=== PATIENT | male | born 1965 | race Caucasian/White ===

== ENCOUNTER 2016-08-26 11:09 | Emergency (ER) | payer OTHER ==
[~2016-08-26] VITALS: Ht 172.7 cm; Wt 107.0 kg
[~2016-08-26 11:09] MED LIST: HYDR-3533 PO; LISI-360 PO; LOVA10TA PO; PROM25SU8 PO; SERT-129 PO
[2016-08-26 11:27] VITALS: BP 104/65; PULSE 65; RESP 16; TEMP 98.6; O2SAT 96
[2016-08-26] MEDS ORDERED: LISI10TA3 PO (11:40)
[2016-08-26] MEDS ORDERED: LOVA10TA PO (11:40)
[2016-08-26] MEDS ORDERED: LIDOCAINE 1%/EPINEPHrine 1:100,000 SOLN 20 ML VIAL INFIL ONE (11:45)
--- NOTE | 2016-08-26 11:45 | PD ---
HPI Chief Complaint: Laceration/Skin Injury Time Seen by Provider: 11:44 Travel History International Travel<30 days: No Contact w/Intl Traveler<30days: No Traveled to known affect area: No History of Present Illness HPI Patient comes in complaining of laceration to the dorsal aspect of his left hand that occurred shortly prior to arrival. Patient states he was throwing a broken toilet into a dumpster when the laceration occurred. Patient denies doing anything for this prior to coming to the emergency department other than wrapping it. Patient reports his tetanus shot is up to date. Patient reports throbbing like pain around the laceration without radiation. PFSH Past Medical History Anxiety: Yes Cancer: No Cardiovascular Problems: No High Cholesterol: Yes Diabetes: No Diminished Hearing: No Endocrine: No Genitourinary: No Hepatitis: No Hiatal Hernia: No Hypertension: Yes Immune Disorder: No Musculoskeletal: No Neurologic: No Psychiatric: Yes (anxiety and depression) Reproductive: No Respiratory: No Immunizations Current: Yes Thyroid Disease: No Tetanus Vaccination: < 5 Years Influenza Vaccination: No Past Surgical History AICD: No Joint Replacement: No Pacemaker: No Other Surgery: Yes (melanoma removal-left shoulder,left upper arm, back) Social History Alcohol Use: Yes (SOCIAL- wine) Tobacco Use: No Substance Use: No Allergies-Medications (Allergen,Severity, Reaction): Coded Allergies: No Known Allergies (Verified , 08/26/16) Reported Meds & Prescriptions Reported Meds & Active Scripts Active Ibuprofen 800 Mg Tab 800 Mg PO Q8H PRN Keflex (Cephalexin) 500 Mg Cap 500 Mg PO Q8H 7 Days Reported Lisinopril 10 Mg Tab 10 Mg PO DAILY Lovastatin 10 Mg Tab 10 Mg PO DAILY Review of Systems Except as stated in HPI: all other systems reviewed are Neg Physical Exam Narrative GENERAL: Well-developed, overly nourished, in no acute distress, and non-ill appearing. SKIN: Warm and dry. Laceration dorsal aspect left hand thumb side. Neurovascularly intact distally. Full range of motion distal to laceration. HEAD: Atraumatic. Normocephalic. EYES: Pupils equal and round. EOMI. No scleral icterus. No injection or drainage. ENT: No nasal bleeding or discharge. Mucous membranes pink and moist. NECK: Trachea midline. Supple. No nuclear rigidity. CARDIOVASCULAR: Capillary refill less than 2 seconds. RESPIRATORY: No accessory muscle use. No respiratory distress. MUSCULOSKELETAL: No obvious deformities. No clubbing. No cyanosis. No edema. Full range of motion. NEUROLOGICAL: Awake and alert. No obvious cranial nerve deficits. Motor grossly within normal limits. Normal speech. PSYCHIATRIC: Appropriate mood and affect; insight and judgment normal. Data Data Last Documented VS Vital Signs Date Time Temp Pulse Resp B/P Pulse Ox O2 Delivery O2 Flow Rate FiO2 08/26/16 11:34 16 08/26/16 11:27 98.6 65 104/65 96 Orders Lidocai-Epi 1%-1:100,000 Inj (Xylocaine- (08/26/16 11:45) Hand, Complete (Thu0ekr) (08/26/16 ) Ibuprofen (Motrin) (08/26/16 13:00) MDM Medical Decision Making Medical Screen Exam Complete: Yes Emergency Medical Condition: Yes Differential Diagnosis Laceration, abrasion, retained foreign body, other Narrative Course The patient suffered laceration to the extremity. There was no evidence to suggest foreign bodies. Visual, tactile and radiographic exams were unremarkable without evidence of foreign body at this time. There was no evidence of neurovascular injury. The patient had a normal distal vascular exam , and had full normal motor and sensory exams. There was also no evidence or tendon injury, with normal distal full range of motions, flexion, extension, abduction, adduction and opponens. There was no evidence of local joint space involvement at this time. The patient was irrigated with copious sterile normal saline and primary repair was performed. Please see procedure note. The patient was given signs and symptom warnings for infection, such as increasing pain, redness, swelling, associated heat, pus or fever. The patient was warned of possible unseen foreign body and instructed to return immediately if signs or symptoms develop. The patient was given instructions for timely follow up and for removal. The patient agreed with plan of care. Patient in no obvious distress upon re-evaluation. All pertinent Radiology result(s) discussed with patient. Patient was asked if they wanted to speak to my attending, which the patient did not wish to do at this time. Any questions/ concerns in reference to patient diagnosis/condition discussed and clarified prior to patient's discharge. Reinforced sheer importance of close follow up with patient's Workmen's Comp. provider and/or hand surgeon. Instructed patient to return to ED immediately, if symptoms return/worsen. Pt showed understanding of above instructions. Further instructions and recommendations were detailed in discharge paperwork. Pt ambulated without difficulty out of ED at discharge. Procedures Procedure Narrative LACERATION REPAIR LOCATION: Left hand dorsal aspect thumb side LENGTH: Approximately 6 cm irregular shaped NUMBER OF STITCHES/ALEKS: 9 total combination of simple interrupted and simple mattress REPAIR: Verbal consent was obtained. The area of the laceration was cleaned and prepped. The laceration was infiltrated with lidocaine with epi. The wound was copiously irrigated and explored without evidence of foreign body, bony involvement, ligament injury, tendon injury, or neurovascular injury. The wound was closed using 4-0 Vicryl. This was a single layer repair. A sterile dressing was applied by nurse. The patient was advised to keep the affected area as clean and dry as possible using soap and water. There were no complications. Patient tolerated the procedure well. Diagnosis Primary Impression: Laceration of left hand Qualified Code: S61.412A - Laceration of left hand, initial encounter Referrals: Zelalem Purdy MD Patient Instructions: Care For Your Absorbable Stitches (ED), General Instructions, Laceration (ED) Additional Instructions: Follow-up with your workmen's comp provider or hand surgeon next week for reevaluation. Take all medication as prescribed. Keep wound dry and clean as possible using soap and water. Return to the emergency department if symptoms get worse. Med/Other Pt SpecificInfo: Prescription(s) given Scripts Ibuprofen 800 Mg Dew417 Mg PO Q8H PRN (PAIN SCALE 1 TO 10) #21 TAB Ref 0 Prov:Becky Kingsley MD 08/26/16 Cephalexin (Keflex)500 Mg Kwn278 Mg PO Q8H 7 Days Ref 0 Prov:Becky Kingsley MD 08/26/16 Disposition: 01 DISCHARGE HOME Condition: Stable Ozzy Ortez Aug 26, 2016 11:45
--- NOTE | 2016-08-26 12:45 | RADHPO ---
EXAM DATE/TIME: 08/26/2016 12:16 [facility] COMPARISON: No previous studies available for comparison. INDICATIONS : Left hand laceration. MEDICAL HISTORY : None. SURGICAL HISTORY : None. ENCOUNTER: Initial ACUITY: 1 day PAIN SCORE: 3/10 LOCATION: Left lateral 1st digit FINDINGS: Three view examination of the left hand demonstrates no soft tissue swelling, dislocation, or fractur e. The carpal bones appear intact. The interphalangeal and metacarpophalangeal joints are intact. Bony mineralization is normal. CONCLUSION: There is no fracture or radiopaque foreign body. Alton German MD FACR on August 26, 2016 at 12:43 Board Certified Radiologist. This report was verified electronically.
[2016-08-26] MEDS ORDERED: CEPH-460 PO (12:55)
[2016-08-26] MEDS ORDERED: IBUP800T23 PO (12:55)
[2016-08-26] MEDS ORDERED: IBUPROFEN 800 MG TAB PO ONE (13:00)
== END 2016-08-26 13:19 | disposition home or self-care (01) ==
LOC: PHEFT 11:09
DX: S61.412A Laceration without foreign body of left hand, initial encounter (principal); W45.8XXA Other foreign body or object entering through skin, initial encounter; Y93.89 Activity, other specified; Y92.9 Unspecified place or not applicable; Y99.0 Civilian activity done for income or pay
CPT/HCPCS: 12002; 73130

== ENCOUNTER 2017-03-07 08:18 | Day surgery (SDC) | payer BC ==
[~2017-03-07 08:18] MED LIST changes: +CEPH-460 PO; -HYDR-3533 PO; +IBUP800T23 PO; -LISI-360 PO; +LISI10TA3 PO; -PROM25SU8 PO; -SERT-129 PO
[2017-03-07] MEDS ORDERED: LIDOCAINE HCL 1% 20 ML VIAL ONE (10:31)
--- NOTE | 2017-03-07 11:14 | RADRPT ---
EXAM DATE/TIME: 03/07/2017 08:54 [facility] COMPARISON: No previous studies available for comparison. EXTERNAL COMPARISON: [facility], PET/CT Tumor, Feb 14 2017. INDICATIONS : Enlarged left axillary lymph node. MEDICAL HISTORY : Left upper arm melanoma. Hypertension. SURGICAL HISTORY : Melanoma removed. Cholecystectomy. ENCOUNTER: Subsequent ACUITY: 3 weeks PAIN SCORE: 0/10 LOCATION: Left axillary. ORGAN: Left lymph node SPECIMENS: 3 cores DEVICE: 18 gauge Temno Post procedure scanning reveals no hematoma or other complication. The possibility does exist that the tissue obtained will be non-diagnostic. If the sample is non-abel gnostic a repeat biopsy or surgical biopsy may need to be performed. TECHNIQUE: 1. Ultrasound guidance for needle biopsy. 2. Needle biopsy. The risks, benefits, and alternatives to ultrasound guided needle biopsy were explained to the patien t in detail including the risk of bleeding and infection. Written and verbal informed consent was ob tained. With the patient on the ultrasound table, images were obtained. Overlying skin was prepped and drape d in the usual sterile fashion and Lidocaine was utilized as a local anesthetic. A needle was advanced into the identified target and 3 core specimens as above obtained and submitted for pathologic evaluation. These were placed in formalin. A sample was also placed in RPMI media. The patient tolerated the procedure well and left the ultrasound suite in stable condition. CONCLUSION: Uncomplicated ultrasound guided needle biopsy of a hypermetabolic lymph node involving the left axill catalino Anna Jr., MD on March 07, 2017 at 11:10 Board Certified Radiologist. This report was verified electronically.
== END 2017-03-07 10:35 | disposition home or self-care (01) ==
LOC: HRAD 08:18 → HRIP 08:19 → HRAD 10:35
PROVIDERS: ATTEND Surgery
DX: C96.9 Malignant neoplasm of lymphoid, hematopoietic and related tissue, unspecified (principal); R59.0 Localized enlarged lymph nodes; I10 Essential (primary) hypertension; Z85.820 Personal history of malignant melanoma of skin
CPT/HCPCS: 38505; 76942; 88305; 88307; 88341; 88342

== ENCOUNTER 2017-04-05 11:21 | Observation (INO) | payer BC ==
[~2017-04-05] VITALS: Ht 172.7 cm; Wt 103.0 kg
[~2017-04-05 11:21] MED LIST changes: -CEPH-460 PO
[2017-04-05] MEDS ORDERED: PROPOFOL 200 MG/20 ML AMP IV ONE (12:00)
[2017-04-05] MEDS ORDERED: ONDANSETRON HCL 4 MG/2 ML VIAL IV PUSH ONE (12:00)
[2017-04-05] MEDS ORDERED: GLYCOPYRROLATE 1 MG/5 ML SYRINGE IV PUSH ONE (12:00)
[2017-04-05] MEDS ORDERED: NEOSTIGMINE 3 MG/3 ML SYR IV ONE (12:00)
[2017-04-05] MEDS ORDERED: ROCURONIUM INJ 50 MG/5 ML SYRINGE IV PUSH ONE (12:00)
[2017-04-05] MEDS ORDERED: PROZ20CA11 PO (12:11)
[2017-04-05] MEDS ORDERED: ceFAZolin 2 GM PREMIX 50 ML IV SCH (12:30)
[2017-04-05] MEDS ORDERED: BUPIVACAINE/EPINEPHRINE 0.25% 50 ML VIAL ONE (12:33)
[2017-04-05] MEDS ORDERED: LIDOCAINE 2%/EPINEPHrine PF 1:200,000 20ML SDV ONE (12:33)
[2017-04-05 12:43] LABS: BICARBONATE 24.6 MEQ/L (21.0-32.0); POTASSIUM 4.1 MEQ/L (3.5-5.1)
[2017-04-05] MEDS ORDERED: INSULIN HUMAN REGULAR 1,000 UNITS/10 ML VIAL SQ PRN (13:00)
[2017-04-05] MEDS ORDERED: LACTATED RINGER'S 1000 ML IV PRN (13:00)
[2017-04-05] MEDS ORDERED: METOPROLOL TARTRATE 25 MG TAB PO PRN (13:00)
[2017-04-05] MEDS ORDERED: CHLORHEXIDINE GLUCONATE 2 % 1 PACK (2 CLOTHS) TOPICAL PRN (13:00)
[2017-04-05] MEDS ORDERED: POVIDONE IODINE 5% (ANTISEPSIS KIT) 4 APPLICATIONS EACH NARE PRN (13:00)
[2017-04-05] MEDS ORDERED: SODIUM CHLORID 0.9% 500 ML IV PRN (13:00)
[2017-04-05] MEDS ORDERED: ACETAMINOPHEN 1000 MG/100 ML 100 ML IV ONE (13:05)
[2017-04-05] MEDS ORDERED: MIDAZOLAM HCL 2 MG/2 ML VIAL ONE (13:05)
[2017-04-05] MEDS ORDERED: FAMOTIDINE 20 MG/2 ML VIAL ONE (13:06)
[2017-04-05] MEDS ORDERED: BACITRACIN TOP OINT 15 GM TUBE ONE (16:06)
[2017-04-05] MEDS ORDERED: DO NOT ADM ANY ANTICOAGULANT DRUGS PRN (16:30)
[2017-04-05] MEDS ORDERED: ZOLPIDEM TARTRATE 5 MG TAB PO PRN (16:45)
[2017-04-05] MEDS ORDERED: IBUPROFEN 600 MG TAB PO PRN (16:45)
[2017-04-05] MEDS ORDERED: ACETAMINOPHEN/HYDROcodone 325 MG/5 MG TAB PO PRN (16:45)
[2017-04-05] MEDS ORDERED: HYDROmorphone HCL PF 1 MG/ML VIAL IV PUSH PRN (16:45)
[2017-04-05] MEDS ORDERED: Post-op Orders (for Pharmacy) MISC XX ONE (16:45)
[2017-04-05] MEDS ORDERED: MAGNESIUM HYDROXIDE SUSP 30 ML CUP PO PRN (16:45)
[2017-04-05] MEDS ORDERED: diphenhydrAMINE HCL 25 MG CAP PO PRN (16:45)
[2017-04-05] MEDS ORDERED: IBUPROFEN 800 MG TAB PO PRN (16:45)
[2017-04-05] MEDS ORDERED: ACETAMINOPHEN 325 MG TAB PO PRN (16:45)
[2017-04-05] MEDS ORDERED: SODIUM CHLORIDE 0.9% FLUSH 10 ML FLUSH IV FLUSH PRN (16:45)
[2017-04-05] MEDS: SODIUM CHLOR 0.9% 1000 ML INJ 1,000 ML IV SCH (17:00)
[2017-04-05] MEDS ORDERED: *morphine SULFATE 8 MG/ML PERIprocedure ONLY ONE ×3 (17:23→17:59)
[2017-04-05] MEDS ORDERED: *HYDROmorphone PF 1 MG VIAL PERIprocedural Use ONLY ONE (18:47)
[2017-04-05 20:00] VITALS: BP 120/75; PULSE 65; RESP 15; TEMP 96.7; O2SAT 95
[2017-04-05] MEDS: SODIUM CHLORIDE 0.9% FLUSH 10 ML FLUSH IV FLUSH SCH (20:43)
[2017-04-06] VITALS: BP 137/81; PULSE 59; RESP 16; TEMP 97.4; O2SAT 98
[2017-04-06 04:00] VITALS: BP 132/80; PULSE 63; RESP 17; TEMP 97.4; O2SAT 99
[2017-04-06] MEDS: SODIUM CHLOR 0.9% 1000 ML INJ 1,000 ML IV SCH (04:16)
[2017-04-06 08:00] VITALS: BP 132/73; PULSE 64; RESP 17; TEMP 97.1; O2SAT 99
--- NOTE | 2017-04-06 08:08 | EKG ---
Date Performed: 04/05/2017 Time Performed: 12:35:09 PTAGE: 51 years EKG: Sinus rhythm MODERATE VOLTAGE CRITERIA FOR LVH, CONSIDER NORMAL VARIANT BORDERLINE ECG Since PREVIOUS TRACING , no significant change noted PREVIOUS TRACIN06/02/2015 06.13 DOCTOR: Selina Hernandez Interpretating Date/Time 04/06/2017 08:06:49
[2017-04-06] MEDS: SODIUM CHLORIDE 0.9% FLUSH 10 ML FLUSH IV FLUSH SCH (08:48)
[2017-04-06] MEDS ORDERED: FLUoxetine HCL 20 MG CAP PO SCH (09:00)
[2017-04-06] MEDS ORDERED: PRAVASTATIN SOD 10 MG TAB PO SCH (09:00)
[2017-04-06] MEDS ORDERED: LISINOPRIL 10 MG TAB PO SCH (09:00)
[2017-04-06 09:09] VITALS: O2SAT 98
[2017-04-06 12:00] VITALS: BP 138/82; PULSE 60; RESP 18; TEMP 97.5; O2SAT 98
--- NOTE | 2017-04-06 14:41 | HHI.DS ---
Discharge Summary Admission Date Apr 05, 2017 at 16:38 Discharge Date: Apr 06, 2017 Admitting Diagnosis Brief History Postop day 1 excision of left upper arm recurrent melanoma; left axillary dissection with GEMMA drain placement CBC/BMP: 04/05/17 1212 Significant Findings Laboratory Tests Test 04/05/17 12:12 Estimat Glomerular Filtration Rate 80 ML/MIN (>89) PE at Discharge Alert and awake Cardio: RRR Resp: CTAB Abd: soft non tender LEFT axillary---GEMMA in place with dark drainage; dressing c/d/i Hospital Course This is a 51-year-old male status post excision left upper arm recurrent melanoma and left axillary dissection with GEMMA drain placement. The patient has done well postoperatively. He did have one episode of nausea vomiting likely due to anesthesia. The patient was able to tolerate a regular diet. The patient's pain was controlled using oral pain medications. Patient will be discharged with GEMMA drain instructions. The patient will follow-up in the office next week. Pt Condition on Discharge: Good Discharge Disposition: Discharge Home Discharge Instructions DIET: Follow Instructions for: As Tolerated, No Restrictions Activities you can perform: Regular-No Restrictions Other Activity Instructions: Okay to shower Routine drain care--- make sure to record the amounts and bring to the office Luz Carlos Apr 06, 2017 14:41
--- NOTE | 2017-04-24 14:08 | MP ---
cc: RADHA LOVELACE DATE OF SURGERY: 04/05/2017 PREOPERATIVE DIAGNOSIS Metastatic melanoma to left axillary lymph nodes. POSTOPERATIVE DIAGNOSIS Metastatic melanoma to left axillary lymph nodes. PROCEDURE 1. Left axillary lymph node dissections, level I, II and III. 2. Excision of in-transit metastasis left upper extremity. ATTENDING SURGEON Dr. Lovelace. OIL HOUSE ATTENDANT Staff. ANESTHESIA General and local anesthetic. FINDINGS A few grossly positive lymph nodes in the left axilla. Grossly no melanoma at the previous excision of the left upper extremity. INDICATION FOR PROCEDURE The patient is a middle-aged male with a history of a melanoma of his left upper extremity, status post wide excision and sentinel node biopsy. The patient has in-transit recurrence found by the blending tank helper in the left upper extremity over 5 cm from the previous excision site as well as PET avid lymph node in the left axilla on staging PET scan. This PET avid lymph node was biopsied and was consistent with metastatic melanoma. We did recommend re-excision of this in-transit metastasis to get good local control as well as left axillary completion lymph node dissection, level I, II and III, for regional control of disease. The risks, benefits and alternatives of this procedure were discussed with the patient prior to the procedure and he agreed to undergo the procedure. DETAILS OF PROCEDURE The patient was taken to the operating room at [facility], placed in the supine position, placed under general endotracheal anesthesia. The patient's left axilla and left upper extremity were prepped and draped in a sterile fashion. A timeout was performed. We turned our attention towards the left completion axillary lymph node dissection first. We did a curvilinear incision and marked this out prior to incision in the left axilla to resect the previously placed sentinel lymph node biopsy site. This was done with a 15 blade scalpel. He used skin hooks and Bovie electrocautery to create skin flaps above and below. We then again used small retractors and removed all tissue posterior to the pectoralis and anterior to the latissimus and the serratus. We did use the Harmonic focus as well as tied vessels with Vicryl 3-0 three times. We did identify the long thoracic and thoracodorsal nerves which were stimulated intact and again divided off of these. There was no previous seroma cavity or scar tissue noted on dissection but there was some obviously palpable and pathologic nodes. There was no gross evidence of any metastatic extension of disease from the nodes to any other structures or tissue. With continuous dissection onto the axillary vein we continued our dissection up into level III and swept these nodes down, again using the focus for hemostasis of all néstor tissue in this area. The tissue was passed off as levels I, II and III for permanent processing. We had excellent hemostasis spontaneously. We did place a 19 Mexican round Surjit drain through a separate stab incision and sutured in place with a nylon suture. We closed the subcutaneous tissue and skin with 3-0 Vicryl followed by 4-0 Monocryl and Dermabond. We then turned our attention towards the excision in the left lower extremity. An approximately 2 cm x 6 cm elliptical incision along with the extremity to completely excise the patient's previously in-transit biopsy site. We did undermine about a centimeter on either side and placed 3-0 Vicryl followed by nylon vertical mattress retention sutures of the skin to the lack of significant tissue in this area due to the patient's previous wide excision. We had excellent skin closure at complete. All gross recurrent disease was removed. There appeared to be normal tissue 360 degrees around this site. We did ray this with a stitch superior and then passed this for permanent processing. At this point in time the patient was discontinued from anesthesia and taken to the PACU in stable condition. The patient tolerated the procedure well. No apparent complications. All counts were correct. MD JAMILAH Pichardo/FABIO /12:13 PM /1:46 PM HELADIO
== END 2017-04-06 14:12 | disposition home or self-care (01) ==
LOC: HSDC 11:21 → HSDI 16:38 → N07B 19:06
PROVIDERS: ADMIT Surgery; ATTEND Surgery
DX: C43.59 Malignant melanoma of other part of trunk (principal); C77.3 Secondary and unspecified malignant neoplasm of axilla and upper limb lymph nodes; G47.30 Sleep apnea, unspecified; R11.2 Nausea with vomiting, unspecified; Z01.810 Encounter for preprocedural cardiovascular examination
CPT/HCPCS: 01610; 21933; 38740; 80048; 88307; 93005; 94150; G0378; J0131; J0690; J1170; J2250; J2270; J2405; J2710; J3010; J7030; J7120; 88305

== ENCOUNTER → 2017-04-28 | Day surgery (SDC) | payer BC ==
[~2017-04-28] MED LIST changes: +BACITRACIN TOP OINT 15 GM TUBE ONE; +BUPIVACAINE/EPINEPHRINE 0.25% 50 ML VIAL ONE; +KETOROLAC TROMETHAMINE 30 MG/ML (IVP) VIAL IV PUSH ONE; +LACTATED RINGER'S 1000 ML INJ 1,000 ML ONE; +MIDAZOLAM HCL 2 MG/2 ML VIAL ONE; +ONDANSETRON HCL 4 MG/2 ML VIAL IV PUSH ONE; +PROPOFOL 200 MG/20 ML AMP IV ONE; +PROZ20CA11 PO; +ceFAZolin 2 GM PREMIX 50 ML ONE
--- NOTE | 2017-04-28 20:03 | TN ---
cc: RADHA LOVELACE DATE OF SURGERY: 04/28/2017. 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 OPERATIVE PROCEDURE PERFORMED: 1. Re-excision of left upper extremity in transit metastasis. 2. Simple closure of wound 4 cm x 1 cm. ATTENDING SURGEON: Radha Lovelace M.D. ASSISTANTS: Staff. ANESTHESIA: General and local anesthetic. ESTIMATED BLOOD LOSS: Less than 10 cc. FINDINGS: Minimal tension with closure of wound from previous excisional site with grossly negative margins and no evidence of any gross melanoma or metastasis. INDICATIONS FOR THE PROCEDURE: The patient is a 51-year-old male who was diagnosed with stage III melanoma several weeks ago and has undergone regional lymph node dissection and resection of an in transit metastasis to the left upper extremity. The patient was SUSANNAH with the exception of a focal positive margin at the in transit metastasis excision site in the left upper extremity. The patient was seen at [facility] and he was recommended to undergo re-excision of this area to ensure negative margins. The risks, benefits, and alternatives to re-excision were discussed. The patient agreed to undergo the procedure. DESCRIPTION OF THE PROCEDURE IN DETAIL: The patient was taken to the operating room and placed in the supine position and placed under anesthesia. The patient's left upper extremity was prepped and draped in the usual sterile fashion. A time out was performed. Local anesthetic was instilled in the site of the re-excision. We excised this with a #15 blade scalpel approximately 4 cm x 1 cm incorporating the majority in the central portion of the patient's previous excision. This was marked with a stitch superior and passed off for permanent processing. Again this was resected all the way down to the muscle as well. We did a small amount of undermining at the wound under minimal tension as the patient had time for his skin to accommodate his previous excision. We placed some 2-0 Vicryl sutures in the deep dermal fascia as well as some 2-0 nylon in a vertical mattress type fashion. The patient had a sterile dressing applied. The patient was discontinued from anesthesia and taken to the post-anesthesia care unit in stable condition. The patient tolerated the procedure well. No apparent complications. All counts were correct. I was present and scrubbed for the entire procedure. MD JAMILAH Pichardo/LIU /3:27 PM /7:50 PM
== END | disposition home or self-care (01) ==
LOC: ESDC 07:51
PROVIDERS: ATTEND Surgery
DX: C43.62 Malignant melanoma of left upper limb, including shoulder (principal)
CPT/HCPCS: 00400; 24071; 88305; J0690; J1885; J2250; J2405; J3010; J7120